=== PATIENT | female | born 1935 | race Caucasian/White ===

== ENCOUNTER 2019-01-14 01:03 | Observation (INO) | payer MEDICARE ==
[~2019-01-14] VITALS: Ht 149.9 cm; Wt 69.2 kg
[~2019-01-14 01:03] MED LIST: ASCO-96 PO; ASPI325T17 PO; CO Q10 PO; CYCL1DRO EACHEYE; LISI-170 PO; MELATONIN PO; METO-99 PO; MIRALAX; NIAC500T9 PO; OMEG1CAP24 PO; RED600TA PO; SPIR25TA5 PO; STOOL SOFTENER
[2019-01-14] MEDS ORDERED: MORPHINE SULFATE 4 MG/ML, 1ML ONE (01:17)
[2019-01-14] MEDS ORDERED: MORPHINE SULFATE 4 MG/ML, 1ML IVPush PRN (01:30)
--- NOTE | 2019-01-14 01:58 | NUR ---
Marni olivier in [facility] - 01/14/19 at 0159 by MARVEL JOSHUA ULLOA) [phone]
--- NOTE | 2019-01-14 02:41 | NUR ---
ART (SON) UPDATED ON POC
[2019-01-14 03:25] VITALS: BP 111/72
[2019-01-14] MEDS ORDERED: ONDANSETRON ODT 4 MG PO PRN (04:00)
[2019-01-14] MEDS ORDERED: ENOXAPARIN 40 MG/0.4 ML SQ SCH (04:00)
[2019-01-14] MEDS ORDERED: ACETAMINOPHEN 325 MG TABLET PO PRN (04:00)
[2019-01-14] MEDS ORDERED: morphine SULFATE 10 MG/ML, 1ML IVPush PRN (04:00)
[2019-01-14] MEDS ORDERED: ONDANSETRON 2MG/ML, 2ML IVPush PRN (04:00)
[2019-01-14 06:55] LABS: BASOPHILS # (AUTO) 0.02 x10^3/uL (0-0.1); BASOPHILS % (AUTO) 0 % (0-1); EOSINOPHILS # (AUTO) 0.12 x10^3/uL (0-0.4); EOSINOPHILS % (AUTO) 2 % (1-7); LYMPHOCYTES # (AUTO) 2.06 x10^3/uL (1-3.4); LYMPHOCYTES % (AUTO) 37 % (22-44); MD NO; MEAN CORPUSCULAR HEMOGLOBIN 35.5 pg (27.0-34.8); MEAN CORPUSCULAR HGB CONC 34.1 g/dL (32.4-35.8); MEAN CORPUSCULAR VOLUME 104.1 fL (80-100); MEAN PLATELET VOLUME 6.6 fL (7.4-10.4); MONOCYTES % (AUTO) 11 % (2-9); NEUTROPHILS # (AUTO) 2.84 x10^3/uL (1.8-6.8); NEUTROPHILS % (AUTO) 50 % (42-75); PLATELET COUNT 227 x10^3/uL (130-400); RED CELL DISTRIBUTION WIDTH 15.8 % (9.6-15.2)
[2019-01-14 07:01] VITALS: BP 91/58
[2019-01-14 07:07] LABS: ANION GAP 6 mmol/L (5-15); CALCIUM 9.3 mg/dL (8.5-10.1); CHLORIDE 112 mmol/L (98-107); CREATININE 1.38 mg/dL (0.55-1.02)
[2019-01-14] MEDS ORDERED: MAGNESIUM SULFATE PMX 2GM/50ML 50 ML IV ONE (08:00)
[2019-01-14] MEDS: SODIUM CHLORIDE FLUSH 10ML SYR IVF SCH ×2 (08:57→21:41)
[2019-01-14] MEDS ORDERED: METOPROLOL TARTRATE 100 MG TABLET PO SCH (09:00)
[2019-01-14] MEDS ORDERED: CO Q10 PO SCH (09:00)
[2019-01-14] MEDS: CYCLOSPORINE EACHEYE SCH ×2 (09:00→21:00)
[2019-01-14] MEDS: LISINOPRIL 20 MG TABLET PO SCH (09:00)
[2019-01-14] MEDS ORDERED: TEMPLATE NON-FORMULARY MED. (Red Yeast Rice** 1,200 MG) PO SCH (09:00)
[2019-01-14] MEDS: NIACIN 500 MG TABLET.ER PO SCH (09:11)
[2019-01-14] MEDS: SPIRONOLACTONE 25 MG TABLET PO SCH (09:12)
[2019-01-14] MEDS: ASCORBIC ACID 500 MG TABLET PO SCH (09:12)
[2019-01-14] MEDS: OMEGA-3/FISH OIL CAPSULE PO SCH (09:12)
[2019-01-14] MEDS: KETOROLAC 30 MG/1 ML IV PRN ×2 (09:13→15:43)
[2019-01-14] MEDS: ENOXAPARIN 30 MG/0.3 ML SQ SCH (09:13)
[2019-01-14] MEDS: ASPIRIN 325 MG TABLET PO SCH (09:13)
[2019-01-14 12:31] VITALS: BP 95/60
[2019-01-14 19:20] VITALS: BP 98/60
[2019-01-14] MEDS ORDERED: METOPROLOL SUCCINATE 100 MG TAB.ER.24H PO SCH (21:00)
[2019-01-14] MEDS ORDERED: MELATONIN 5 MG TABLET PO SCH (21:00)
[2019-01-14] MEDS: METHOCARBAMOL 500 MG TABLET PO SCH ×2 (21:00→21:41)
[2019-01-14 22:28] LABS: MICROSCOPIC AUTO
[2019-01-14 22:35] LABS: CULTURE INDICATED? YES
[2019-01-15 01:59] VITALS: BP 95/52
[2019-01-15 03:27] VITALS: BP 103/62
[2019-01-15 06:10] LABS: BASOPHILS # (AUTO) 0.02 x10^3/uL (0-0.1); BASOPHILS % (AUTO) 0 % (0-1); EOSINOPHILS # (AUTO) 0.15 x10^3/uL (0-0.4); EOSINOPHILS % (AUTO) 3 % (1-7); LYMPHOCYTES % (AUTO) 32 % (22-44); MD NO; MEAN CORPUSCULAR HEMOGLOBIN 34.6 pg (27.0-34.8); MEAN CORPUSCULAR HGB CONC 33.3 g/dL (32.4-35.8); MEAN CORPUSCULAR VOLUME 103.9 fL (80-100); MEAN PLATELET VOLUME 6.5 fL (7.4-10.4); MONOCYTES # (AUTO) 0.64 x10^3/uL (0.2-0.8); MONOCYTES % (AUTO) 12 % (2-9); NEUTROPHILS # (AUTO) 2.89 x10^3/uL (1.8-6.8); NEUTROPHILS % (AUTO) 54 % (42-75); PLATELET COUNT 223 x10^3/uL (130-400); RED BLOOD COUNT 3.06 x10^6/uL (3.82-5.3); RED CELL DISTRIBUTION WIDTH 15.8 % (9.6-15.2)
[2019-01-15 06:21] LABS: ANION GAP 6 mmol/L (5-15); CALCIUM 9.3 mg/dL (8.5-10.1); CHLORIDE 111 mmol/L (98-107)
[2019-01-15 06:24] LABS: CREATININE 1.78 mg/dL (0.55-1.02)
[2019-01-15 07:52] VITALS: BP 111/66
[2019-01-15] MEDS: ASPIRIN 325 MG TABLET PO SCH (08:23)
[2019-01-15] MEDS: ASCORBIC ACID 500 MG TABLET PO SCH (08:23)
[2019-01-15] MEDS: ENOXAPARIN 30 MG/0.3 ML SQ SCH (08:23)
[2019-01-15] MEDS: SPIRONOLACTONE 25 MG TABLET PO SCH (08:23)
[2019-01-15] MEDS: NIACIN 500 MG TABLET.ER PO SCH (08:23)
[2019-01-15] MEDS: METHOCARBAMOL 500 MG TABLET PO SCH (08:23)
[2019-01-15] MEDS: OMEGA-3/FISH OIL CAPSULE PO SCH (08:23)
[2019-01-15] MEDS: LISINOPRIL 20 MG TABLET PO SCH (08:23)
[2019-01-15] MEDS: SODIUM CHLORIDE FLUSH 10ML SYR IVF SCH (08:24)
[2019-01-15] MEDS: CYCLOSPORINE EACHEYE SCH (09:00)
[2019-01-15 12:52] VITALS: BP 91/56
== END 2019-01-15 17:21 | disposition home health service (06) ==
LOC: ED 02:32 → INTOOBSV 02:37 → EDIP 02:37 → ED 02:46 → 3NE 03:10 → DCLOUNGE 01-15 17:10
PROVIDERS: ADMIT Hospitalist; ATTEND Hospitalist
DX: M25.552 Pain in left hip (principal); M81.0 Age-related osteoporosis without current pathological fracture; I10 Essential (primary) hypertension; E78.5 Hyperlipidemia, unspecified; G47.30 Sleep apnea, unspecified; Z90.710 Acquired absence of both cervix and uterus; Z96.643 Presence of artificial hip joint, bilateral
CPT/HCPCS: 36415; 72192; 73502; 80048; 81001; 83735; 84100; 85025; 87077; 87086; 87147; 87186; 96365; 96366; 96372; 96375; 96376; 97163; 97165; 99284; G0378; J1650; J1885; J3475; 96374

== ENCOUNTER 2019-06-24 17:47 | Emergency (ER) | payer MEDICARE ==
[~2019-06-24] VITALS: Ht 149.9 cm; Wt 67.8 kg
[2019-06-24 18:03] VITALS: BP 110/49
== END 2019-06-24 20:18 ==
LOC: ED 20:12
DX: S51.812A Laceration without foreign body of left forearm, initial encounter (principal); I10 Essential (primary) hypertension; W01.0XXA Fall on same level from slipping, tripping and stumbling without subsequent striking against object, initial encounter; Y93.89 Activity, other specified; Y92.009 Unspecified place in unspecified non-institutional (private) residence as the place of occurrence of the external cause; Y99.8 Other external cause status
CPT/HCPCS: 12032; 90471; 90715